=== PATIENT | male | born 1975 | race Two or more races ===

== ENCOUNTER 2025-01-10 17:25 | Emergency (ER) | payer SELFPAY ==
[~2025-01-10] VITALS: Ht 160 cm; Wt 75.0 kg
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
[2025-01-10] MEDS: ONDANSETRON ODT 4 MG TAB PO ONE (17:45)
[2025-01-10] MEDS: HYDROmorphone HCL 2 MG/ML VL/or syr IV ONE (17:45)
[2025-01-10] MEDS: HYDROmorphone HCL 2 MG/ML VL/or syr IM ONE ×2 (17:45→21:04)
[2025-01-10] MEDS: ONDANSETRON HCL 4 MG/2 ML VIAL ONE (17:48)
[2025-01-10] MEDS: ONDANSETRON HCL 4 MG/2 ML VIAL IV ONE ×2 (18:10→23:27)
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
[2025-01-10 19:30] VITALS: PULSE 106; RESP 21; TEMP 98.6; O2SAT 98
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
[2025-01-10] MEDS: BACITRACIN TOP OINT 1 UD PKG TOP ONE (20:46)
[2025-01-10 23:29] LABS: Urine Protein, UAD TRACE (Negative)
[2025-01-10] MEDS ORDERED: BACIOIN15 TOP (23:54)
[2025-01-10] MEDS ORDERED: CEPH250C PO (23:54)
[2025-01-10] MEDS ORDERED: HYDR-4798 PO (23:54)
[2025-01-10] MEDS ORDERED: IBUP-1455 PO (23:54)
[2025-01-11 00:19] VITALS: BP 138/79; PULSE 109; RESP 12; O2SAT 99
== END 2025-01-11 00:20 | disposition home or self-care (01) ==
LOC: ER 17:25
DX: S42.252A Displaced fracture of greater tuberosity of left humerus, initial encounter for closed fracture (principal); S00.81XA Abrasion of other part of head, initial encounter; S09.93XA Unspecified injury of face, initial encounter; R42 Dizziness and giddiness; V89.2XXA Person injured in unspecified motor-vehicle accident, traffic, initial encounter; Y93.89 Activity, other specified; Y92.410 Unspecified street and highway as the place of occurrence of the external cause; Y99.8 Other external cause status
CPT/HCPCS: 29105; 70450; 71250; 72125; 73200; 74176; 81001; 96372; 96374; 96375; 96376; 99285; J1171; J2405; Q0162